=== PATIENT | male | born 1945 | race Caucasian/White ===

== ENCOUNTER 2017-01-26 07:33 | Outpatient (CLI) | payer MEDICARE ==
[2016-09-20 15:05] VITALS: BP 128/63
[2017-01-26 08:14] LABS: MEAN CORPUSCULAR HEMOGLOBIN 33.2 pg (28.0-34.0); MEAN CORPUSCULAR VOLUME 101.7 fl (80.0-100.0)
[2017-01-26 09:04] LABS: eGFR (African) > 60; eGFR (Non-African) > 60
[2017-01-26 09:46] LABS: SEGMENTED NEUTROPHILS % 66 % (39-79)
[2017-01-26 09:47] LABS: MONOCYTES % 4 % (0-11)
[2017-01-30 08:21] LABS: VITAMIN B2 (RIBOFLAVIN) 24 nmol/L (5-50)
== END 2017-01-26 07:34 ==
LOC: LAB 07:33
PROVIDERS: ATTEND Family Medicine
DX: E53.1 Pyridoxine deficiency (principal); K12.1 Other forms of stomatitis; D64.9 Anemia, unspecified; I10 Essential (primary) hypertension
CPT/HCPCS: 36415; 80053; 84207; 84252; 84425; 84591; 85025

== ENCOUNTER 2018-03-16 17:09 | Outpatient (CLI) | payer MEDICARE ==
[2016-09-20 15:05] VITALS: BP 128/63
== END 2018-03-16 17:10 ==
LOC: LAB 17:09
PROVIDERS: ATTEND Family Medicine
DX: S30.860A Insect bite (nonvenomous) of lower back and pelvis, initial encounter (principal); W57.XXXA Bitten or stung by nonvenomous insect and other nonvenomous arthropods, initial encounter; Y93.9 Activity, unspecified; Y92.9 Unspecified place or not applicable; Y99.9 Unspecified external cause status
CPT/HCPCS: 36415; 86618; 86666; 86757

== ENCOUNTER 2018-03-23 15:22 | Outpatient (CLI) | payer MEDICARE ==
[2016-09-20 15:05] VITALS: BP 128/63
--- NOTE | 2018-03-24 09:06 | OP Clinic Progress Note ---
REASON FOR VISIT: This 73-year-old man is seen with his . He has a 5-year history of symptoms including weight loss, malaise, fatigue, memory loss, and multiple other issues. She has a sore mouth with rugations in it. He has taken a variety of medications. He has some IgG abnormalities. More importantly, a butcher idea was to draw serology for tick borne disease by Dr. Chas Medrano. These findings were positive for tick borne disease. He has begun tetracycline 250 mg 3 or 4 times a day. Patient has on his own recognizance to take even a higher course of steroids than usual. Recently, he has felt somewhat better and he accounts it to the steroids. At the same time, he has been taking the tetracycline. He and his felt they paid heavily for the tetracycline. 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 They do not look malignant. He feels like they are reduced in severity. Using a fiberoptic laryngoscope, I do not see severe lesions further down in his throat in the larynx or vocal cords. PLAN: His wondered whether he might be able to change medications. I have given him doxycycline 100 mg to take twice a day for the next 2 weeks and simply recheck. I have pointed out and repeatedly so that the diagnosis of Lyme disease is not a guarantee that symptoms will resolve. However, it was quite clearly a significant good idea for Dr. Medrano to think in this regard and to have the blood test drawn. cc: Dr. Chas EDWARDS
== END 2018-03-23 15:23 ==
LOC: ENT 15:22
PROVIDERS: ATTEND Otolaryngology
DX: A69.20 Lyme disease, unspecified (principal); K13.70 Unspecified lesions of oral mucosa
CPT/HCPCS: 31575; G0463

== ENCOUNTER 2018-04-06 14:49 | Outpatient (CLI) | payer MEDICARE ==
[2016-09-20 15:05] VITALS: BP 128/63
--- NOTE | 2018-04-09 07:27 | OP Clinic Progress Note ---
REASON FOR VISIT: This 73-year-old man is seen in follow up with his with a history of positive Lyme disease with an elevated titer. The patient had severe glossitis and headaches. He had a tick removed by his that was quite bloody about 5 years ago and the symptoms have persisted. Dr. Medrano appropriately made a good diagnosis and he was on tetracycline. On a guess work basis, he was tried on doxycycline 100 mg b.i.d. in the interval 2 weeks. Although cost is bit of an issue with the patient and his , they can see the dramatic difference and improvement given the diagnosis. His glossitis has dramatically improved. His swallowing has markedly improved. The headaches have markedly improved. His energy level has dramatically improved. PLAN: I gave him another month of doxycycline 100 mg twice a day. I have asked him to check with Dr. Chas Medrano in the interval for continued follow up as that is where the diagnosis was made and he is in good hands. cc: Dr. Chas EDWARDS
== END 2018-04-06 14:50 ==
LOC: ENT 14:49
PROVIDERS: ATTEND Otolaryngology
DX: K14.0 Glossitis (principal); A69.20 Lyme disease, unspecified
CPT/HCPCS: G0463

== ENCOUNTER 2018-05-02 15:24 | Outpatient (CLI) | payer MEDICARE ==
[2016-09-20 15:05] VITALS: BP 128/63
[2018-05-02 16:12] LABS: eGFR (African) > 60; eGFR (Non-African) > 60
[2018-05-02 16:54] LABS: MEAN CORPUSCULAR HEMOGLOBIN 32.7 pg (28.0-34.0); MEAN CORPUSCULAR VOLUME 98.5 fl (80.0-100.0)
[2018-05-02 18:01] LABS: SEGMENTED NEUTROPHILS % 72 % (39-79)
[2018-05-02 18:02] LABS: MONOCYTES % 7 % (0-11)
[2018-05-02 18:03] LABS: TOXIC VACUOLATION 1+
== END 2018-05-02 15:30 ==
LOC: LAB 15:24
PROVIDERS: ATTEND Family Medicine
DX: E55.9 Vitamin D deficiency, unspecified (principal); Z51.81 Encounter for therapeutic drug level monitoring
CPT/HCPCS: 80053; 82306; 85025

== ENCOUNTER 2018-07-08 10:05 | Outpatient (CLI) | payer MEDICARE ==
[2016-09-20 15:05] VITALS: BP 128/63
[2018-07-08 11:03] LABS: eGFR (Non-African) > 60
--- NOTE | 2018-07-08 18:46 | Diagnostic Imaging Report ---
SINDI MOORE [facility] [id number] [facility] [address] [id number] Report Submission Date: Jul 08, 2018 11:39:17 AM CDT Patient Study Name: JOSE GARCIA Date: Jul 08, 2018 10:23:54 AM CDT Modality Type: DX Gender: M Description: CHEST : 49 Institution: [facility] Physician: SINDI MOORE PA AND LATERAL CHEST HISTORY: Cough and wheezing. Smoker. COMPARISON: None PA and Lateral Chest dated July 08, 2018 demonstrates a normal cardiomediastinal silhouette. Pulmonary vascularity is normal. Lungs are clear. IMPRESSION: NO ACTIVE DISEASE. Electronically signed on Jul 08, 2018 11:39:17 AM CDT by: Moni EDWARDS
[2018-07-08 23:31] LABS: MCH. 32.2 pg (28.0-34.0)
== END 2018-07-08 10:06 ==
LOC: LAB 10:05
PROVIDERS: ATTEND Family Medicine
DX: Z51.81 Encounter for therapeutic drug level monitoring (principal); R73.9 Hyperglycemia, unspecified; J43.1 Panlobular emphysema
CPT/HCPCS: 36415; 71046; 80053; 83036; 85025

== ENCOUNTER 2018-07-13 11:24 | Emergency (ER) | payer MEDICARE ==
--- NOTE | 2018-07-13 11:38 | ED Physician Documentation ---
General Adult - HISTORIAN Historian: patient - HPI Stated Complaint: shortness of breath Chief Complaint: General Adult Onset: other (over a few months ) Timing: still present Severity: mild Further Comments: yes (He reports these "episodes" of shortness of breath for a "while" He states usually he sits and calms himself and the shortness of air eases however this am he was starting an "episode" and he states after sitting he was only becoming increasingly short on air to the point "I thought I was going to before the ambulance arrived" He states he is trying to stop smoking but he is only cutting back he has not stopped. Denies a a fever. States Dr Medrano placed him on wednesday and he had lab and chest xray he is not feeling any improvement) - ROS CONST: denies: fever MS/SKIN/LYMPH: none NEURO/PSYCH: headache, dizziness - PAST HX Past History: none Immunizations: UTD Allergies/Adverse Reactions: Allergies Allergy/AdvReac Type Severity Reaction Status Date / Time Penicillins Allergy Verified 07/13/18 12:54 Home Medications: Ambulatory Orders Medication Instructions Recorded Albuterol Sulfate [Proair HFA] 1 puff IH PRN PRN 07/13/18 Aspirin [Cheng] 325 mg PO D 07/13/18 - SOCIAL HX Smoking History: cigarettes Alcohol Use: none Drug Use: none - FAMILY HX Family History: No - VITAL SIGNS Vital Signs: Vital Signs Temp Pulse Resp BP Pulse Ox 128/63 09/20/16 15:03 - REVIEWED ASSESSMENTS Nursing Assessment Reviewed: Yes Vitals Reviewed: Yes Progress - Progress Progress: 1230: awaiting lab - less shortness of air per his report. at bedside DG 1330: Discussed case with Dr He will transfer pt DG 1345: Discussed case with Dr Ventura he will accept DG ED Results Lab/Radiology - Orders Orders: ED Orders Category Date Time Status CT PE CHEST Stat Exams 07/13/18 Ordered ARTERIAL BLOOD GAS Stat Lab 07/13/18 Uncollected BNP [NT-proBNP] Stat Lab 07/13/18 Ordered CBC/PLATELET/DIFF Routine Lab 07/13/18 Ordered CMP Routine Lab 07/13/18 Ordered CREATINE KINASE Routine Lab 07/13/18 Ordered D DIMER Stat Lab 07/13/18 Ordered PT-INR Routine Lab 07/13/18 Ordered TROPONIN I (cTnI) Stat Lab 07/13/18 Ordered Ipratropium/Albuterol Sulfate [Duoneb] Med 07/13/18 11:25 Discontinued 3 ml NEB NOW ONE EKG WITH COMPARISON Stat Ther 07/13/18 Ordered General Adult Physical Exam - PHYSICAL EXAM GENERAL APPEARANCE: moderate distress EENT: eye inspection normal, ENT inspection normal NECK: normal inspection RESPIRATORY: no resp distress, chest non-tender, breath sounds normal CVS: reg rate & rhythm, heart sounds normal, equal pulses ABDOMEN: soft, normal bowel sounds BACK: normal inspection SKIN: cyanosis EXTREMITIES: non-tender, normal range of motion, no evidence of injury, no edema NEURO: oriented X3, CN's nml as tested, motor nml, sensation nml, mood/affect nml, cognition normal Discharge Clincal Impression: Hypoxia Referrals: Chas Medrano MD [Primary Care Provider] - 2 Days Comments: 1. Dr [facility] Condition: Serious Disposition: 02 XFER SHT-TRM HOSP Decision to Admit: NO Date of Decison to Admit: 07/13/18 Decision Time: 13:40
[2018-07-13] MEDS: IPRATROPIUM/ALBUTEROL SULFATE 3 ML AMPUL.NEB NEB ONE (12:30)
[2018-07-13 12:40] LABS: eGFR (Non-African) > 60
[2018-07-13] MEDS ORDERED: LEVOFLOXACIN 500MG/D5W 100ML 100 ML IV ONE (14:33)
[2018-07-13] MEDS: LEVOFLOXACIN 500MG/D5W 100ML 500 MG in PREMIX BAG 1 BAG IV SCH (14:40)
[2018-07-13] MEDS: LORazepam 2 MG/ML VIAL IVP ONE (14:48)
[2018-07-13 15:32] VITALS: BP 107/73
[2018-07-13 15:39] LABS: MCH. 31.7 pg (28.0-34.0); MCV 104.4 fL (80.0-100.0); PLATELET COUNT 543 thou/uL (130-400)
[2018-07-15 14:38] LABS: BASOPHILS % 0 % (0-2); EOSINOPHILS % 3 % (0-7); MONOCYTES % 0 % (0-11); SEGMENTED NEUTROPHILS % 75 % (39-79)
[2018-07-15 14:39] LABS: HYPOCHROMASIA 1+ (NEGATIVE); PLT EST. EST. AGREES W/PLT CT
== END 2018-07-13 15:15 | disposition short-term general hospital (02) ==
LOC: ED 11:24
DX: R09.02 Hypoxemia (principal)
CPT/HCPCS: 80053; 82550; 83880; 84484; 85025; 85379; 85610; 87040; 87186; 93005; 94640; 96365; 99284; 99285; J1956